=== PATIENT | male | born 1935 | race African-American/Black ===

== ENCOUNTER 2016-10-29 17:23 | Inpatient (IN) | payer MEDICARE, OTHER ==
[~2016-10-29] VITALS: Ht 165.1 cm; Wt 76.0 kg
[~2016-10-29 17:23] MED LIST: ACET650S28 PO; AMLO-512 PO; ASPI-1061 PO; AUD NEB; BISA10S PR; FURO20TA4 PO; IPRNEB IH; MOM30 PO; MORP1VIA IVPB; MORP2SYR SQ; MS100DRIP SQ; ONDA22I IM; PANT40TA25 PO; PIPE3.379 IV; QUET25TA PO; ZOLP5 PO; [UNRECOGNIZED DRUG - CODE] IV
[2016-10-29] MEDS ORDERED: SODIUM CHLORIDE 0.9% 1,000 ML IV ONE (18:00)
[2016-10-29] MEDS ORDERED: PANTOPRAZOLE SODIUM 80 MG in SODIUM CHLORIDE 0.9% 500 ML IV SCH (18:00)
[2016-10-29] MEDS ORDERED: PANTOPRAZOLE SODIUM 80 MG in SODIUM CHLORIDE 0.9% 50 ML IV ONE (18:00)
[2016-10-29] MEDS ORDERED: ACET-2247 PO (18:03)
[2016-10-29 19:10] LABS: BASOPHILS % (AUTO) 0.5 % (0.0-2.0); EOSINOPHILS % (AUTO) 2.5 % (1.0-6.0); HEMATOCRIT 34.9 % (41-53); LYMPHOCYTES # (AUTO) 2.5 K/uL (1.0-4.8); LYMPHOCYTES % (AUTO) 33.6 % (22.0-44.0); MEAN CORPUSCULAR HEMOGLOBIN 28.2 pg (26.0-34.0); MEAN CORPUSCULAR HGB CONC 31.4 G/dL (31.0-37.0); MEAN CORPUSCULAR VOLUME 90 fL (80-100); MONOCYTES # (AUTO) 0.8 K/uL (0.1-1.0); MONOCYTES % (AUTO) 11.5 % (2.0-9.0); NEUTROPHILS # (AUTO) 3.8 K/uL (1.8-7.7); NEUTROPHILS % (AUTO) 51.9 % (40.0-70.0); PLATELET COUNT (AUTO) 239 K/uL (150-450); RED BLOOD CELL COUNT(AUTO) 3.89 MIL/uL (4.50-5.90); RED CELL DISTRIBUTION WIDTH 18.1 % (11.5-14.5); WHITE BLOOD COUNT (AUTO) 7.3 K/uL (4.5-11.0)
[2016-10-29 19:16] LABS: ANION GAP 5 mmol/L (8-16); CALCIUM, TOTAL 9.1 mg/dL (8.8-10.5); CARBON DIOXIDE 28 mmol/L (22-29); CHLORIDE 108 mmol/L (98-107); CREATININE 0.76 mg/dL (0.60-1.30); GLOMERULAR FILTR. RATE CALC > 60 mL/min (>60); POTASSIUM 3.5 mmol/L (3.5-5.1); SODIUM SERUM 141 mmol/L (136-145); UREA NITROGEN, BLOOD 23 mg/dL (7-18)
[2016-10-29 19:21] LABS: ALANINE AMINOTRANSFERASE 15 U/L (12-78); ALBUMIN 2.6 g/dL (3.4-5.0); ASPARTATE AMINOTRANSFERASE 15 U/L (15-37); BILIRUBIN,TOTAL 0.1 mg/dL (0.1-1.0); TOTAL PROTEIN, SERUM 7.5 g/dL (6.4-8.2)
[2016-10-29 19:32] LABS: B-TYPE NATRIURETIC PEPTIDE 15 pg/mL (0-100)
[2016-10-29 20:21] LABS: RBC MORPHOLOGY COMMENT ABNORMAL RBC MORPH
[2016-10-29 20:25] LABS: APPEARANCE,URINE CLOUDY (CLEAR); GLUCOSE, URINE (UA) NEGATIVE (NEGATIVE); KETONES,URINE NEGATIVE (NEGATIVE); LEUKOCYTE ESTERASE ,URINE LARGE (NEGATIVE); OCCULT BLOOD,URINE MODERATE (NEGATIVE); PH,URINE 5.5 (5.0-8.0); PROTEIN,URINE TRACE (NEGATIVE)
[2016-10-29 20:36] LABS: ADD UA MICROSCOPIC YES
[2016-10-29 20:37] LABS: CALCIUM OXALATE CRYSTALS,UR Rare /LPF (None Seen); COARSE GRANULAR CASTS,URINE 0-2 /LPF (None Seen); HYALINE CASTS, URINE 0-2 /LPF (None Seen); RBC,URINE 26-50 /HPF (0-2); SQUAMOUS EPITHELIAL CELL,UR Rare /LPF (None Seen); WBC,URINE 51-100 /HPF (0-5)
[2016-10-29] MEDS: CefTRIAXone 1 GM/DEXTROSE 50 ML IV ONE ×2 (20:45→23:29)
[2016-10-29 21:48] VITALS: BP 99/54
[2016-10-29] MEDS ORDERED: ONDANSETRON HCL 4 MG/2 ML VIAL IVP PRN (23:00)
[2016-10-29] MEDS ORDERED: MAGNESIUM HYDROXIDE SUSPENSION 30 ML UDCUP PO PRN (23:00)
[2016-10-29] MEDS ORDERED: BISACODYL 10 MG RECTAL RECTAL SUPPOSITORY PR PRN (23:00)
[2016-10-30 00:12] VITALS: BP 104/61
[2016-10-30] MEDS: QUEtiapine FUMARATE 25 MG TABLET PO SCH ×3 (01:48→20:30)
[2016-10-30 04:07] VITALS: BP 98/56
[2016-10-30] MEDS ORDERED: PROPOFOL 1% 20 ML VIAL IVP ONE (04:12)
[2016-10-30] MEDS: CefTRIAXone 1 GM/DEXTROSE 50 ML IV ONE (04:38)
[2016-10-30 07:15] VITALS: BP 163/93
[2016-10-30 07:27] LABS: BASOPHILS % (AUTO) 0.9 % (0.0-2.0); EOSINOPHILS % (AUTO) 2.7 % (1.0-6.0); HEMATOCRIT 34.6 % (41-53); HEMOGLOBIN 10.9 g/dL (13.5-17.5); LYMPHOCYTES # (AUTO) 4.1 K/uL (1.0-4.8); LYMPHOCYTES % (AUTO) 50.6 % (22.0-44.0); MEAN CORPUSCULAR HGB CONC 31.6 G/dL (31.0-37.0); MEAN CORPUSCULAR VOLUME 89 fL (80-100); MONOCYTES # (AUTO) 0.9 K/uL (0.1-1.0); MONOCYTES % (AUTO) 11.2 % (2.0-9.0); NEUTROPHILS # (AUTO) 2.8 K/uL (1.8-7.7); NEUTROPHILS % (AUTO) 34.6 % (40.0-70.0); PLATELET COUNT (AUTO) 276 K/uL (150-450); RED CELL DISTRIBUTION WIDTH 17.9 % (11.5-14.5)
[2016-10-30 07:50] LABS: HEMOGLOBIN A1C 5.9 % (4.5-6.2)
[2016-10-30 08:04] LABS: ANION GAP 9 mmol/L (8-16); CALCIUM, TOTAL 9.4 mg/dL (8.8-10.5); CARBON DIOXIDE 26 mmol/L (22-29); CHLORIDE 110 mmol/L (98-107); CHOL/HDL RATIO 2.8 (4.2-7.3); CREATINE KINASE MB 2.2 ng/mL (0-5); CREATINE KINASE, TOTAL 95 U/L (39-308); CREATININE 0.74 mg/dL (0.60-1.30); GLOMERULAR FILTR. RATE CALC > 60 mL/min (>60); POTASSIUM 4.5 mmol/L (3.5-5.1); SODIUM SERUM 145 mmol/L (136-145); THYROID STIMULATING HORMONE 2.38 uIU/mL (0.36-3.74); UREA NITROGEN, BLOOD 19 mg/dL (7-18)
[2016-10-30] MEDS: FUROSEMIDE 20 MG TABLET PO SCH (09:00)
[2016-10-30 09:32] LABS: VITAMIN B12 LEVEL 625 pg/mL (211-911)
[2016-10-30 10:28] LABS: RBC MORPHOLOGY COMMENT ABNORMAL RBC MORPH
[2016-10-30] MEDS: PANTOPRAZOLE SODIUM 40 MG/VIAL IVP SCH (11:07)
[2016-10-30 11:18] VITALS: BP 157/52
[2016-10-30] MEDS ORDERED: SODIUM CHLORIDE 0.9% 1,000 ML IV ONE ×2 (13:00→13:27)
[2016-10-30] MEDS ORDERED: CLON.1 PO (17:07)
[2016-10-30] MEDS ORDERED: ASCO500T24 PO (17:07)
[2016-10-30] MEDS ORDERED: FAMO20 PO (17:07)
[2016-10-30] MEDS ORDERED: LACT1TAB4 PO (17:07)
[2016-10-30] MEDS ORDERED: FURO20 PO (17:07)
[2016-10-30] MEDS ORDERED: MULT1CAP32 PO (17:07)
[2016-10-30] MEDS ORDERED: LORA1TAB3 IM (17:07)
[2016-10-30] MEDS ORDERED: ONDA4 PO (17:07)
[2016-10-30] MEDS ORDERED: SIME80 PO (17:07)
[2016-10-30 17:23] VITALS: BP 122/72
[2016-10-30 20:05] VITALS: BP 136/67
[2016-10-30] MEDS: CefTRIAXone 1 GM/DEXTROSE 50 ML IV SCH (20:30)
[2016-10-30] MEDS: LORazepam 2 MG/ML VIAL IVP PRN (20:30)
[2016-10-31] VITALS (7 sets, daily range): BP systolic 104–153; BP diastolic 56–80
[2016-10-31 06:27] LABS: BASOPHILS % (AUTO) 0.7 % (0.0-2.0); EOSINOPHILS % (AUTO) 5.2 % (1.0-6.0); HEMATOCRIT 32.3 % (41-53); HEMOGLOBIN 10.2 g/dL (13.5-17.5); LYMPHOCYTES # (AUTO) 2.6 K/uL (1.0-4.8); LYMPHOCYTES % (AUTO) 47.1 % (22.0-44.0); MEAN CORPUSCULAR HEMOGLOBIN 28.5 pg (26.0-34.0); MEAN CORPUSCULAR HGB CONC 31.6 G/dL (31.0-37.0); MEAN CORPUSCULAR VOLUME 90 fL (80-100); MONOCYTES # (AUTO) 0.8 K/uL (0.1-1.0); MONOCYTES % (AUTO) 14.2 % (2.0-9.0); NEUTROPHILS # (AUTO) 1.8 K/uL (1.8-7.7); NEUTROPHILS % (AUTO) 32.8 % (40.0-70.0); PLATELET COUNT (AUTO) 241 K/uL (150-450); RED BLOOD CELL COUNT(AUTO) 3.59 MIL/uL (4.50-5.90); RED CELL DISTRIBUTION WIDTH 17.9 % (11.5-14.5); WHITE BLOOD COUNT (AUTO) 5.5 K/uL (4.5-11.0)
[2016-10-31 06:36] LABS: ANION GAP 4 mmol/L (8-16); CALCIUM, TOTAL 8.7 mg/dL (8.8-10.5); CARBON DIOXIDE 28 mmol/L (22-29); CHLORIDE 110 mmol/L (98-107); CREATININE 0.68 mg/dL (0.60-1.30); GLOMERULAR FILTR. RATE CALC > 60 mL/min (>60); POTASSIUM 4.2 mmol/L (3.5-5.1); SODIUM SERUM 142 mmol/L (136-145); UREA NITROGEN, BLOOD 16 mg/dL (7-18)
[2016-10-31 06:42] LABS: RBC MORPHOLOGY COMMENT ABNORMAL RBC MORPH
[2016-10-31] MEDS: PANTOPRAZOLE SODIUM 40 MG/VIAL IVP SCH (09:39)
[2016-10-31] MEDS: FUROSEMIDE 20 MG TABLET PO SCH (09:39)
[2016-10-31] MEDS: MULTIVITAMINS, THERAPEUTIC TABLET PO SCH (09:39)
[2016-10-31] MEDS: QUEtiapine FUMARATE 25 MG TABLET PO SCH ×3 (09:40→20:31)
[2016-10-31] MEDS: MUPIROCIN CALCIUM 2% 22 GM OINTMENT NASAL SCH (20:31)
[2016-10-31] MEDS: LORazepam 2 MG/ML VIAL IVP PRN (20:31)
[2016-10-31] MEDS: CefTRIAXone 1 GM/DEXTROSE 50 ML IV SCH (20:33)
[2016-11-01 04:23] VITALS: BP 124/69
[2016-11-01 07:03] LABS: BASOPHILS # (AUTO) 0.03 K/uL (0.00-0.20); BASOPHILS % (AUTO) 0.5 % (0.0-2.0); EOSINOPHILS # (AUTO) 0.23 K/uL (0.00-0.70); EOSINOPHILS % (AUTO) 3.32 % (1.0-6.0); HEMATOCRIT 33.3 % (41-53); LYMPHOCYTES # (AUTO) 2.7 K/uL (1.0-4.8); LYMPHOCYTES % (AUTO) 39.2 % (22.0-44.0); MEAN CORPUSCULAR HEMOGLOBIN 29.1 pg (26.0-34.0); MEAN CORPUSCULAR VOLUME 88 fL (80-100); MONOCYTES # (AUTO) 0.8 K/uL (0.1-1.0); MONOCYTES % (AUTO) 11.4 % (2.0-9.0); NEUTROPHILS # (AUTO) 3.1 K/uL (1.8-7.7); NEUTROPHILS % (AUTO) 45.6 % (40.0-70.0); PLATELET COUNT (AUTO) 290 K/uL (150-450); RED BLOOD CELL COUNT(AUTO) 3.78 MIL/uL (4.50-5.90); RED CELL DISTRIBUTION WIDTH 17.3 % (11.5-14.5); WHITE BLOOD COUNT (AUTO) 6.8 K/uL (4.5-11.0)
[2016-11-01 07:33] LABS: ANION GAP 8 mmol/L (8-16); CALCIUM, TOTAL 8.8 mg/dL (8.8-10.5); CARBON DIOXIDE 28 mmol/L (22-29); CHLORIDE 107 mmol/L (98-107); CREATININE 0.61 mg/dL (0.60-1.30); GLOMERULAR FILTR. RATE CALC > 60 mL/min (>60); POTASSIUM 3.6 mmol/L (3.5-5.1); SODIUM SERUM 143 mmol/L (136-145); UREA NITROGEN, BLOOD 13 mg/dL (7-18)
[2016-11-01 08:44] VITALS: BP 145/80
[2016-11-01] MEDS: FUROSEMIDE 20 MG TABLET PO SCH (08:57)
[2016-11-01] MEDS: QUEtiapine FUMARATE 25 MG TABLET PO SCH ×3 (08:59→20:16)
[2016-11-01] MEDS: MULTIVITAMINS, THERAPEUTIC TABLET PO SCH (08:59)
[2016-11-01] MEDS: PANTOPRAZOLE SODIUM 40 MG/VIAL IVP SCH (08:59)
[2016-11-01] MEDS: MUPIROCIN CALCIUM 2% 22 GM OINTMENT NASAL SCH ×2 (09:13→20:17)
[2016-11-01 10:23] LABS: RBC MORPHOLOGY COMMENT ABNORMAL RBC MORPH
[2016-11-01] MEDS ORDERED: CloNIDine HCL 0.1 MG TABLET PO PRN (11:00)
[2016-11-01] MEDS ORDERED: SIMETHICONE 80 MG CHEWABLE TABLET PO PRN (11:00)
[2016-11-01] MEDS ORDERED: CEFT1PB IV (11:20)
[2016-11-01] MEDS ORDERED: FURO20 PO (11:22)
[2016-11-01] MEDS ORDERED: MUPI15CR12 NASAL (11:28)
[2016-11-01] MEDS ORDERED: BISA10S PR (11:29)
[2016-11-01] MEDS ORDERED: LORA0.5T2 PO (11:30)
[2016-11-01 12:07] VITALS: BP 138/65
[2016-11-01 16:00] VITALS: BP 147/75
[2016-11-01 20:14] VITALS: BP 118/74
[2016-11-01] MEDS: LORazepam 2 MG/ML VIAL IVP PRN (20:16)
[2016-11-01] MEDS: CefTRIAXone 1 GM/DEXTROSE 50 ML IV SCH (20:17)
[2016-11-02] VITALS (7 sets, daily range): BP systolic 122–159; BP diastolic 60–77
[2016-11-02] MEDS: PANTOPRAZOLE SODIUM 40 MG/VIAL IVP SCH (08:05)
[2016-11-02] MEDS: LACTOBAC ACID/BULG/BIFID/THERM TABLET PO SCH (08:06)
[2016-11-02] MEDS: FUROSEMIDE 20 MG TABLET PO SCH (08:06)
[2016-11-02] MEDS: MUPIROCIN CALCIUM 2% 22 GM OINTMENT NASAL SCH ×2 (08:06→20:27)
[2016-11-02] MEDS: ASPIRIN 81 MG EC TABLET PO SCH (08:06)
[2016-11-02] MEDS: AmLODIPine BESYLATE 10 MG TABLET PO SCH (08:06)
[2016-11-02] MEDS: ASCORBIC ACID 500 MG TABLET PO SCH (08:07)
[2016-11-02] MEDS: QUEtiapine FUMARATE 25 MG TABLET PO SCH ×3 (08:07→20:25)
[2016-11-02] MEDS: MULTIVITAMINS, THERAPEUTIC TABLET PO SCH (08:07)
[2016-11-02] MEDS ORDERED: 0.9% SODIUM CHLORIDE 10 ML SYRINGE IVP PRN (17:30)
[2016-11-02] MEDS: CefTRIAXone 1 GM/DEXTROSE 50 ML IV SCH (20:25)
[2016-11-02] MEDS: LORazepam 2 MG/ML VIAL IVP PRN (20:27)
[2016-11-03] VITALS (7 sets, daily range): BP systolic 102–151; BP diastolic 55–79
[2016-11-03] MEDS: AmLODIPine BESYLATE 10 MG TABLET PO SCH (08:59)
[2016-11-03] MEDS: PANTOPRAZOLE SODIUM 40 MG/VIAL IVP SCH (08:59)
[2016-11-03] MEDS: FUROSEMIDE 20 MG TABLET PO SCH (09:00)
[2016-11-03] MEDS: ASCORBIC ACID 500 MG TABLET PO SCH (09:00)
[2016-11-03] MEDS: LACTOBAC ACID/BULG/BIFID/THERM TABLET PO SCH (09:00)
[2016-11-03] MEDS: ASPIRIN 81 MG EC TABLET PO SCH (09:00)
[2016-11-03] MEDS: QUEtiapine FUMARATE 25 MG TABLET PO SCH ×3 (09:00→21:28)
[2016-11-03] MEDS: MULTIVITAMINS, THERAPEUTIC TABLET PO SCH (09:00)
[2016-11-03] MEDS: MUPIROCIN CALCIUM 2% 22 GM OINTMENT NASAL SCH ×2 (09:02→21:29)
[2016-11-03] MEDS: LORazepam 2 MG/ML VIAL IVP PRN ×2 (12:13→21:30)
[2016-11-03] MEDS: CefTRIAXone 1 GM/DEXTROSE 50 ML IV SCH (21:29)
[2016-11-03] MEDS: ACETAMINOPHEN 325 MG TABLET PO PRN (23:04)
[2016-11-04 04:50] VITALS: BP 142/93
[2016-11-04 07:12] VITALS: BP 122/53
[2016-11-04] MEDS: MUPIROCIN CALCIUM 2% 22 GM OINTMENT NASAL SCH ×2 (08:53→20:04)
[2016-11-04] MEDS: PANTOPRAZOLE SODIUM 40 MG/VIAL IVP SCH (08:53)
[2016-11-04] MEDS: LACTOBAC ACID/BULG/BIFID/THERM TABLET PO SCH (08:54)
[2016-11-04] MEDS: ASPIRIN 81 MG EC TABLET PO SCH (08:54)
[2016-11-04] MEDS: FUROSEMIDE 20 MG TABLET PO SCH (08:54)
[2016-11-04] MEDS: MULTIVITAMINS, THERAPEUTIC TABLET PO SCH (08:54)
[2016-11-04] MEDS: ASCORBIC ACID 500 MG TABLET PO SCH (08:55)
[2016-11-04] MEDS: QUEtiapine FUMARATE 25 MG TABLET PO SCH ×3 (08:57→20:02)
[2016-11-04] MEDS: AmLODIPine BESYLATE 10 MG TABLET PO SCH (08:57)
[2016-11-04] MEDS ORDERED: ENALAPRIL MALEATE 5 MG TABLET PO PRN (09:30)
[2016-11-04 09:37] LABS: BASOPHILS # (AUTO) 0.01 K/uL (0.00-0.20); BASOPHILS % (AUTO) 0.1 % (0.0-2.0); EOSINOPHILS # (AUTO) 0.33 K/uL (0.00-0.70); HEMOGLOBIN 11.8 g/dL (13.5-17.5); LYMPHOCYTES # (AUTO) 1.8 K/uL (1.0-4.8); LYMPHOCYTES % (AUTO) 25.9 % (22.0-44.0); MEAN CORPUSCULAR HEMOGLOBIN 28.9 pg (26.0-34.0); MEAN CORPUSCULAR HGB CONC 31.8 G/dL (31.0-37.0); MEAN CORPUSCULAR VOLUME 91 fL (80-100); MONOCYTES # (AUTO) 0.7 K/uL (0.1-1.0); MONOCYTES % (AUTO) 9.7 % (2.0-9.0); NEUTROPHILS % (AUTO) 59.4 % (40.0-70.0); PLATELET COUNT (AUTO) 263 K/uL (150-450); RED BLOOD CELL COUNT(AUTO) 4.07 MIL/uL (4.50-5.90); RED CELL DISTRIBUTION WIDTH 17.5 % (11.5-14.5); WHITE BLOOD COUNT (AUTO) 6.7 K/uL (4.5-11.0)
[2016-11-04 09:47] LABS: ANION GAP 5 mmol/L (8-16); CALCIUM, TOTAL 8.9 mg/dL (8.8-10.5); CARBON DIOXIDE 32 mmol/L (22-29); CHLORIDE 103 mmol/L (98-107); CREATININE 0.73 mg/dL (0.60-1.30); GLOMERULAR FILTR. RATE CALC > 60 mL/min (>60); POTASSIUM 3.8 mmol/L (3.5-5.1); SODIUM SERUM 140 mmol/L (136-145); UREA NITROGEN, BLOOD 12 mg/dL (7-18)
[2016-11-04 09:58] LABS: RBC MORPHOLOGY COMMENT ABNORMAL RBC MORPH
[2016-11-04 10:01] LABS: ALANINE AMINOTRANSFERASE 12 U/L (12-78); ALBUMIN 2.7 g/dL (3.4-5.0); ASPARTATE AMINOTRANSFERASE 17 U/L (15-37); BILIRUBIN,TOTAL 0.3 mg/dL (0.1-1.0); THYROID STIMULATING HORMONE 2.44 uIU/mL (0.36-3.74); TOTAL PROTEIN, SERUM 7.4 g/dL (6.4-8.2)
[2016-11-04 11:16] VITALS: BP 136/67
[2016-11-04 14:49] VITALS: BP 128/61
[2016-11-04 19:23] VITALS: BP 130/73
[2016-11-04] MEDS: ACETAMINOPHEN 325 MG TABLET PO PRN (20:02)
[2016-11-04] MEDS: CefTRIAXone 1 GM/DEXTROSE 50 ML IV SCH (20:03)
[2016-11-05] VITALS: BP 128/74
[2016-11-05] MEDS: ACETAMINOPHEN 325 MG TABLET PO PRN ×2 (03:57→10:07)
[2016-11-05 04:00] VITALS: BP 136/68
[2016-11-05 09:56] VITALS: BP 138/79
[2016-11-05] MEDS: MUPIROCIN CALCIUM 2% 22 GM OINTMENT NASAL SCH (10:06)
[2016-11-05] MEDS: ASPIRIN 81 MG EC TABLET PO SCH (10:07)
[2016-11-05] MEDS: QUEtiapine FUMARATE 25 MG TABLET PO SCH ×3 (10:07→20:55)
[2016-11-05] MEDS: PANTOPRAZOLE SODIUM 40 MG/VIAL IVP SCH (10:07)
[2016-11-05] MEDS: MULTIVITAMINS, THERAPEUTIC TABLET PO SCH (10:07)
[2016-11-05] MEDS: AmLODIPine BESYLATE 10 MG TABLET PO SCH (10:07)
[2016-11-05] MEDS: FUROSEMIDE 20 MG TABLET PO SCH (10:07)
[2016-11-05] MEDS: LACTOBAC ACID/BULG/BIFID/THERM TABLET PO SCH (10:07)
[2016-11-05] MEDS: ASCORBIC ACID 500 MG TABLET PO SCH (10:08)
[2016-11-05 11:30] VITALS: BP 140/68
[2016-11-05] MEDS: LORazepam 2 MG/ML VIAL IVP PRN (15:58)
[2016-11-05 20:00] VITALS: BP 120/67
[2016-11-05] MEDS: CefTRIAXone 1 GM/DEXTROSE 50 ML IV SCH (20:56)
[2016-11-05] MEDS: CAFFEINE 200 MG TABLET PO SCH (20:56)
[2016-11-05] MEDS: MAGNESIUM OXIDE 400 MG TABLET PO PRN (22:49)
[2016-11-05 23:24] VITALS: BP 126/70
[2016-11-06 04:06] VITALS: BP 134/68
[2016-11-06] MEDS: MAGNESIUM OXIDE 400 MG TABLET PO PRN ×2 (06:05→12:31)
[2016-11-06 06:43] LABS: BASOPHILS # (AUTO) 0.07 K/uL (0.00-0.20); EOSINOPHILS # (AUTO) 0.19 K/uL (0.00-0.70); EOSINOPHILS % (AUTO) 2.94 % (1.0-6.0); HEMATOCRIT 33.7 % (41-53); HEMOGLOBIN 10.8 g/dL (13.5-17.5); LYMPHOCYTES # (AUTO) 1.9 K/uL (1.0-4.8); LYMPHOCYTES % (AUTO) 29.5 % (22.0-44.0); MEAN CORPUSCULAR HEMOGLOBIN 29.3 pg (26.0-34.0); MEAN CORPUSCULAR HGB CONC 32.2 G/dL (31.0-37.0); MEAN CORPUSCULAR VOLUME 91 fL (80-100); MONOCYTES # (AUTO) 0.8 K/uL (0.1-1.0); NEUTROPHILS # (AUTO) 3.6 K/uL (1.8-7.7); NEUTROPHILS % (AUTO) 54.5 % (40.0-70.0); PLATELET COUNT (AUTO) 247 K/uL (150-450); RED CELL DISTRIBUTION WIDTH 17.3 % (11.5-14.5); WHITE BLOOD COUNT (AUTO) 6.6 K/uL (4.5-11.0)
[2016-11-06 07:07] LABS: ALANINE AMINOTRANSFERASE 14 U/L (12-78); ALBUMIN 2.5 g/dL (3.4-5.0); ANION GAP 6 mmol/L (8-16); ASPARTATE AMINOTRANSFERASE 15 U/L (15-37); BILIRUBIN,TOTAL 0.2 mg/dL (0.1-1.0); CALCIUM, TOTAL 8.6 mg/dL (8.8-10.5); CARBON DIOXIDE 32 mmol/L (22-29); CHLORIDE 102 mmol/L (98-107); CREATININE 0.78 mg/dL (0.60-1.30); GLOMERULAR FILTR. RATE CALC > 60 mL/min (>60); POTASSIUM 4.1 mmol/L (3.5-5.1); SODIUM SERUM 140 mmol/L (136-145); TOTAL PROTEIN, SERUM 6.8 g/dL (6.4-8.2); UREA NITROGEN, BLOOD 12 mg/dL (7-18)
[2016-11-06 07:29] VITALS: BP 107/49
[2016-11-06] MEDS: ASPIRIN 81 MG EC TABLET PO SCH (08:11)
[2016-11-06] MEDS: PANTOPRAZOLE SODIUM 40 MG/VIAL IVP SCH (08:11)
[2016-11-06] MEDS: AmLODIPine BESYLATE 10 MG TABLET PO SCH (08:11)
[2016-11-06] MEDS: QUEtiapine FUMARATE 25 MG TABLET PO SCH ×3 (08:11→21:06)
[2016-11-06] MEDS: ASCORBIC ACID 500 MG TABLET PO SCH (08:11)
[2016-11-06] MEDS: LACTOBAC ACID/BULG/BIFID/THERM TABLET PO SCH (08:11)
[2016-11-06] MEDS: FUROSEMIDE 20 MG TABLET PO SCH (08:11)
[2016-11-06] MEDS: CAFFEINE 200 MG TABLET PO SCH ×2 (08:11→21:05)
[2016-11-06] MEDS: MULTIVITAMINS, THERAPEUTIC TABLET PO SCH (08:11)
[2016-11-06 11:17] VITALS: BP 119/54
[2016-11-06 14:30] LABS: RBC MORPHOLOGY COMMENT ABNORMAL RBC MORPH
[2016-11-06 15:10] VITALS: BP 119/61
[2016-11-06] MEDS: ACETAMINOPHEN 325 MG TABLET PO PRN (16:06)
[2016-11-06 19:40] VITALS: BP 123/59
[2016-11-06] MEDS: CefTRIAXone 1 GM/DEXTROSE 50 ML IV SCH (21:05)
[2016-11-06 23:37] VITALS: BP 106/59
[2016-11-07] MEDS: LORazepam 2 MG/ML VIAL IVP PRN (01:55)
[2016-11-07 05:17] VITALS: BP 124/63
[2016-11-07 07:40] VITALS: BP 125/83
[2016-11-07] MEDS: LACTOBAC ACID/BULG/BIFID/THERM TABLET PO SCH (08:49)
[2016-11-07] MEDS: MULTIVITAMINS, THERAPEUTIC TABLET PO SCH (08:50)
[2016-11-07] MEDS: ASPIRIN 81 MG EC TABLET PO SCH (08:50)
[2016-11-07] MEDS: ASCORBIC ACID 500 MG TABLET PO SCH (08:50)
[2016-11-07] MEDS: QUEtiapine FUMARATE 25 MG TABLET PO SCH ×3 (08:51→21:12)
[2016-11-07] MEDS: AmLODIPine BESYLATE 5 MG TABLET PO SCH (08:52)
[2016-11-07] MEDS: CAFFEINE 200 MG TABLET PO SCH ×2 (08:52→21:12)
[2016-11-07] MEDS: PANTOPRAZOLE SODIUM 40 MG/VIAL IVP SCH (09:44)
[2016-11-07 12:02] VITALS: BP 104/57
[2016-11-07] MEDS: FUROSEMIDE 20 MG TABLET PO SCH (12:10)
[2016-11-07 16:34] VITALS: BP 146/78
[2016-11-07 20:33] VITALS: BP 142/75
[2016-11-07] MEDS: CefTRIAXone 1 GM/DEXTROSE 50 ML IV SCH (21:12)
[2016-11-07 23:39] VITALS: BP 145/75
[2016-11-08 04:43] VITALS: BP 140/77
[2016-11-08 07:16] LABS: BASOPHILS % (AUTO) 0.5 % (0.0-2.0); EOSINOPHILS % (AUTO) 5.6 % (1.0-6.0); HEMATOCRIT 31.5 % (41-53); LYMPHOCYTES # (AUTO) 2.2 K/uL (1.0-4.8); LYMPHOCYTES % (AUTO) 45.6 % (22.0-44.0); MEAN CORPUSCULAR HEMOGLOBIN 28.3 pg (26.0-34.0); MEAN CORPUSCULAR HGB CONC 31.7 G/dL (31.0-37.0); MEAN CORPUSCULAR VOLUME 89 fL (80-100); MONOCYTES # (AUTO) 0.7 K/uL (0.1-1.0); MONOCYTES % (AUTO) 13.3 % (2.0-9.0); NEUTROPHILS # (AUTO) 1.7 K/uL (1.8-7.7); RED BLOOD CELL COUNT(AUTO) 3.54 MIL/uL (4.50-5.90)
[2016-11-08 07:18] LABS: ALANINE AMINOTRANSFERASE 13 U/L (12-78); ALBUMIN 2.4 g/dL (3.4-5.0); ANION GAP 5 mmol/L (8-16); ASPARTATE AMINOTRANSFERASE 15 U/L (15-37); BILIRUBIN,TOTAL 0.2 mg/dL (0.1-1.0); CALCIUM, TOTAL 8.6 mg/dL (8.8-10.5); CARBON DIOXIDE 31 mmol/L (22-29); CHLORIDE 105 mmol/L (98-107); CREATININE 0.68 mg/dL (0.60-1.30); GLOMERULAR FILTR. RATE CALC > 60 mL/min (>60); POTASSIUM 3.4 mmol/L (3.5-5.1); SODIUM SERUM 141 mmol/L (136-145); TOTAL PROTEIN, SERUM 6.8 g/dL (6.4-8.2); UREA NITROGEN, BLOOD 10 mg/dL (7-18); WHITE BLOOD COUNT (AUTO) 7.4 K/uL (4.5-11.0)
[2016-11-08 07:35] VITALS: BP 135/67
[2016-11-08] MEDS: ASCORBIC ACID 500 MG TABLET PO SCH (07:51)
[2016-11-08] MEDS: QUEtiapine FUMARATE 25 MG TABLET PO SCH ×3 (07:51→20:31)
[2016-11-08] MEDS: MULTIVITAMINS, THERAPEUTIC TABLET PO SCH (07:51)
[2016-11-08] MEDS: ASPIRIN 81 MG EC TABLET PO SCH (07:51)
[2016-11-08] MEDS: PANTOPRAZOLE SODIUM 40 MG/VIAL IVP SCH (07:52)
[2016-11-08] MEDS: AmLODIPine BESYLATE 5 MG TABLET PO SCH (07:52)
[2016-11-08] MEDS: LACTOBAC ACID/BULG/BIFID/THERM TABLET PO SCH (07:52)
[2016-11-08] MEDS: FUROSEMIDE 20 MG TABLET PO SCH (07:52)
[2016-11-08] MEDS: CAFFEINE 200 MG TABLET PO SCH ×2 (07:56→20:34)
[2016-11-08 08:32] LABS: PLATELET COUNT (AUTO) 209 K/uL (150-450)
[2016-11-08] MEDS ORDERED: POTASSIUM CHLORIDE 10 MEQ ER TABLET PO ONE (09:00)
[2016-11-08 11:05] VITALS: BP 136/66
[2016-11-08 15:31] VITALS: BP 128/76
[2016-11-08 19:53] VITALS: BP 146/78
[2016-11-08] MEDS: CefTRIAXone 1 GM/DEXTROSE 50 ML IV SCH (20:34)
[2016-11-08 23:12] VITALS: BP 142/89
[2016-11-09] MEDS: ZOLPIDEM TARTRATE 5 MG TABLET PO PRN (02:03)
[2016-11-09] MEDS: LORazepam 2 MG/ML VIAL IVP PRN (02:37)
[2016-11-09 06:22] VITALS: BP 156/74
[2016-11-09 07:09] VITALS: BP 128/67
[2016-11-09] MEDS: MULTIVITAMINS, THERAPEUTIC TABLET PO SCH (08:30)
[2016-11-09] MEDS: AmLODIPine BESYLATE 5 MG TABLET PO SCH (08:30)
[2016-11-09] MEDS: LACTOBAC ACID/BULG/BIFID/THERM TABLET PO SCH (08:31)
[2016-11-09] MEDS: ASPIRIN 81 MG EC TABLET PO SCH (08:31)
[2016-11-09] MEDS: QUEtiapine FUMARATE 25 MG TABLET PO SCH ×3 (08:31→20:47)
[2016-11-09] MEDS: CAFFEINE 200 MG TABLET PO SCH ×2 (08:32→20:47)
[2016-11-09] MEDS: ASCORBIC ACID 500 MG TABLET PO SCH (08:32)
[2016-11-09] MEDS: PANTOPRAZOLE SODIUM 40 MG/VIAL IVP SCH (08:34)
[2016-11-09 10:57] VITALS: BP 121/61
[2016-11-09] MEDS: FUROSEMIDE 20 MG TABLET PO SCH (12:06)
[2016-11-09 15:05] VITALS: BP 141/70
[2016-11-09 19:40] VITALS: BP 146/72
[2016-11-09] MEDS: CefTRIAXone 1 GM/DEXTROSE 50 ML IV SCH (20:48)
[2016-11-09] MEDS: ACETAMINOPHEN 325 MG TABLET PO PRN (20:51)
[2016-11-09] MEDS ORDERED: SODIUM CHLORIDE 0.9% 250 ML IV ONE (20:57)
[2016-11-10] VITALS (7 sets, daily range): BP systolic 118–166; BP diastolic 53–77
[2016-11-10] MEDS: ZOLPIDEM TARTRATE 5 MG TABLET PO PRN ×2 (00:23→20:42)
[2016-11-10] MEDS: LORazepam 2 MG/ML VIAL IVP PRN ×2 (00:43→21:34)
[2016-11-10] MEDS: ASPIRIN 81 MG EC TABLET PO SCH (09:16)
[2016-11-10] MEDS: QUEtiapine FUMARATE 25 MG TABLET PO SCH ×3 (09:16→20:41)
[2016-11-10] MEDS: AmLODIPine BESYLATE 5 MG TABLET PO SCH (09:16)
[2016-11-10] MEDS: ASCORBIC ACID 500 MG TABLET PO SCH (09:16)
[2016-11-10] MEDS: MULTIVITAMINS, THERAPEUTIC TABLET PO SCH (09:16)
[2016-11-10] MEDS: FUROSEMIDE 20 MG TABLET PO SCH (09:16)
[2016-11-10] MEDS: LACTOBAC ACID/BULG/BIFID/THERM TABLET PO SCH (09:16)
[2016-11-10] MEDS: CAFFEINE 200 MG TABLET PO SCH ×2 (09:39→20:42)
[2016-11-10] MEDS: PANTOPRAZOLE SODIUM 40 MG/VIAL IVP SCH (09:42)
[2016-11-10] MEDS: MAGNESIUM OXIDE 400 MG TABLET PO PRN (12:46)
[2016-11-11 06:01] VITALS: BP 135/56
[2016-11-11] MEDS: PANTOPRAZOLE SODIUM 40 MG/VIAL IVP SCH (09:00)
[2016-11-11] MEDS: QUEtiapine FUMARATE 25 MG TABLET PO SCH ×3 (09:10→20:36)
[2016-11-11] MEDS: LACTOBAC ACID/BULG/BIFID/THERM TABLET PO SCH (09:10)
[2016-11-11] MEDS: FUROSEMIDE 20 MG TABLET PO SCH (09:10)
[2016-11-11] MEDS: MULTIVITAMINS, THERAPEUTIC TABLET PO SCH (09:10)
[2016-11-11] MEDS: ASCORBIC ACID 500 MG TABLET PO SCH (09:10)
[2016-11-11] MEDS: ASPIRIN 81 MG EC TABLET PO SCH (09:10)
[2016-11-11] MEDS: AmLODIPine BESYLATE 5 MG TABLET PO SCH (09:10)
[2016-11-11] MEDS: CAFFEINE 200 MG TABLET PO SCH ×2 (09:11→21:36)
[2016-11-11 09:43] VITALS: BP 116/66
[2016-11-11 12:25] VITALS: BP 138/71
[2016-11-11 16:34] VITALS: BP 149/74
[2016-11-11 19:45] VITALS: BP 127/62
[2016-11-11 23:35] VITALS: BP 122/56
[2016-11-12 04:39] VITALS: BP 115/67
[2016-11-12 07:03] LABS: BASOPHILS % (AUTO) 0.5 % (0.0-2.0); EOSINOPHILS % (AUTO) 5.6 % (1.0-6.0); HEMATOCRIT 33.4 % (41-53); HEMOGLOBIN 10.6 g/dL (13.5-17.5); LYMPHOCYTES # (AUTO) 2.8 K/uL (1.0-4.8); LYMPHOCYTES % (AUTO) 48.4 % (22.0-44.0); MEAN CORPUSCULAR HEMOGLOBIN 28.3 pg (26.0-34.0); MEAN CORPUSCULAR HGB CONC 31.6 G/dL (31.0-37.0); MEAN CORPUSCULAR VOLUME 90 fL (80-100); MONOCYTES # (AUTO) 0.7 K/uL (0.1-1.0); NEUTROPHILS # (AUTO) 1.9 K/uL (1.8-7.7); NEUTROPHILS % (AUTO) 32.5 % (40.0-70.0); PLATELET COUNT (AUTO) 218 K/uL (150-450); RED BLOOD CELL COUNT(AUTO) 3.73 MIL/uL (4.50-5.90); RED CELL DISTRIBUTION WIDTH 17.5 % (11.5-14.5); WHITE BLOOD COUNT (AUTO) 5.7 K/uL (4.5-11.0)
[2016-11-12 07:17] VITALS: BP 120/68
[2016-11-12 07:27] LABS: RBC MORPHOLOGY COMMENT ABNORMAL RBC MORPH
[2016-11-12 07:46] LABS: ANION GAP 7 mmol/L (8-16); CALCIUM, TOTAL 8.5 mg/dL (8.8-10.5); CARBON DIOXIDE 30 mmol/L (22-29); CHLORIDE 100 mmol/L (98-107); CREATININE 0.74 mg/dL (0.60-1.30); GLOMERULAR FILTR. RATE CALC > 60 mL/min (>60); POTASSIUM 4.1 mmol/L (3.5-5.1); SODIUM SERUM 137 mmol/L (136-145); UREA NITROGEN, BLOOD 14 mg/dL (7-18)
[2016-11-12] MEDS: MULTIVITAMINS, THERAPEUTIC TABLET PO SCH (08:44)
[2016-11-12] MEDS: AmLODIPine BESYLATE 5 MG TABLET PO SCH (08:44)
[2016-11-12] MEDS: PANTOPRAZOLE SODIUM 40 MG/VIAL IVP SCH (08:44)
[2016-11-12] MEDS: ASPIRIN 81 MG EC TABLET PO SCH (08:44)
[2016-11-12] MEDS: FUROSEMIDE 20 MG TABLET PO SCH (08:44)
[2016-11-12] MEDS: QUEtiapine FUMARATE 25 MG TABLET PO SCH ×3 (08:45→20:50)
[2016-11-12] MEDS: LACTOBAC ACID/BULG/BIFID/THERM TABLET PO SCH (08:46)
[2016-11-12] MEDS: CAFFEINE 200 MG TABLET PO SCH ×2 (08:46→20:50)
[2016-11-12] MEDS: ASCORBIC ACID 500 MG TABLET PO SCH (08:47)
[2016-11-12 11:30] VITALS: BP 126/58
[2016-11-12 16:08] VITALS: BP 136/67
[2016-11-12 19:55] VITALS: BP 106/55
[2016-11-12 23:51] VITALS: BP 126/51
[2016-11-13 05:04] VITALS: BP 130/69
[2016-11-13 07:28] VITALS: BP 141/71
[2016-11-13 07:38] LABS: BASOPHILS % (AUTO) 0.5 % (0.0-2.0); HEMATOCRIT 36.5 % (41-53); HEMOGLOBIN 11.4 g/dL (13.5-17.5); LYMPHOCYTES # (AUTO) 2.3 K/uL (1.0-4.8); LYMPHOCYTES % (AUTO) 29.9 % (22.0-44.0); MEAN CORPUSCULAR HEMOGLOBIN 28.1 pg (26.0-34.0); MEAN CORPUSCULAR HGB CONC 31.2 G/dL (31.0-37.0); MEAN CORPUSCULAR VOLUME 90 fL (80-100); MONOCYTES # (AUTO) 0.7 K/uL (0.1-1.0); MONOCYTES % (AUTO) 9.3 % (2.0-9.0); NEUTROPHILS # (AUTO) 4.3 K/uL (1.8-7.7); NEUTROPHILS % (AUTO) 56.3 % (40.0-70.0); PLATELET COUNT (AUTO) 233 K/uL (150-450); RED BLOOD CELL COUNT(AUTO) 4.06 MIL/uL (4.50-5.90); RED CELL DISTRIBUTION WIDTH 16.4 % (11.5-14.5); WHITE BLOOD COUNT (AUTO) 7.7 K/uL (4.5-11.0)
[2016-11-13 07:53] LABS: ANION GAP 6 mmol/L (8-16); CALCIUM, TOTAL 8.8 mg/dL (8.8-10.5); CARBON DIOXIDE 30 mmol/L (22-29); CHLORIDE 99 mmol/L (98-107); CREATININE 0.72 mg/dL (0.60-1.30); GLOMERULAR FILTR. RATE CALC > 60 mL/min (>60); POTASSIUM 3.8 mmol/L (3.5-5.1); SODIUM SERUM 135 mmol/L (136-145); UREA NITROGEN, BLOOD 13 mg/dL (7-18)
[2016-11-13] MEDS: QUEtiapine FUMARATE 25 MG TABLET PO SCH ×3 (08:48→21:15)
[2016-11-13] MEDS: ASCORBIC ACID 500 MG TABLET PO SCH (08:49)
[2016-11-13] MEDS: LACTOBAC ACID/BULG/BIFID/THERM TABLET PO SCH (08:49)
[2016-11-13] MEDS: FUROSEMIDE 20 MG TABLET PO SCH (08:49)
[2016-11-13] MEDS: AmLODIPine BESYLATE 5 MG TABLET PO SCH (08:49)
[2016-11-13] MEDS: ASPIRIN 81 MG EC TABLET PO SCH (08:49)
[2016-11-13] MEDS: MULTIVITAMINS, THERAPEUTIC TABLET PO SCH (08:49)
[2016-11-13] MEDS: CAFFEINE 200 MG TABLET PO SCH ×2 (08:49→21:15)
[2016-11-13] MEDS: PANTOPRAZOLE SODIUM 40 MG/VIAL IVP SCH (08:51)
[2016-11-13 10:55] VITALS: BP 116/61
[2016-11-13 15:01] VITALS: BP 145/67
[2016-11-13 20:00] VITALS: BP 121/63
[2016-11-13] MEDS: ZOLPIDEM TARTRATE 5 MG TABLET PO PRN (23:47)
[2016-11-14] VITALS: BP 103/50
[2016-11-14 04:00] VITALS: BP 110/53
[2016-11-14 06:11] LABS: BASOPHILS % (AUTO) 0.6 % (0.0-2.0); EOSINOPHILS % (AUTO) 4.6 % (1.0-6.0); HEMATOCRIT 32.8 % (41-53); HEMOGLOBIN 10.4 g/dL (13.5-17.5); LYMPHOCYTES # (AUTO) 2.2 K/uL (1.0-4.8); LYMPHOCYTES % (AUTO) 35.4 % (22.0-44.0); MEAN CORPUSCULAR HEMOGLOBIN 28.5 pg (26.0-34.0); MEAN CORPUSCULAR HGB CONC 31.6 G/dL (31.0-37.0); MEAN CORPUSCULAR VOLUME 90 fL (80-100); MONOCYTES # (AUTO) 0.9 K/uL (0.1-1.0); MONOCYTES % (AUTO) 14.9 % (2.0-9.0); NEUTROPHILS # (AUTO) 2.8 K/uL (1.8-7.7); NEUTROPHILS % (AUTO) 44.5 % (40.0-70.0); PLATELET COUNT (AUTO) 210 K/uL (150-450); RED BLOOD CELL COUNT(AUTO) 3.64 MIL/uL (4.50-5.90); RED CELL DISTRIBUTION WIDTH 16.7 % (11.5-14.5); WHITE BLOOD COUNT (AUTO) 6.3 K/uL (4.5-11.0)
[2016-11-14 06:24] LABS: ANION GAP 7 mmol/L (8-16); CALCIUM, TOTAL 8.5 mg/dL (8.8-10.5); CARBON DIOXIDE 29 mmol/L (22-29); CHLORIDE 101 mmol/L (98-107); CREATININE 0.73 mg/dL (0.60-1.30); GLOMERULAR FILTR. RATE CALC > 60 mL/min (>60); POTASSIUM 3.7 mmol/L (3.5-5.1); SODIUM SERUM 137 mmol/L (136-145); UREA NITROGEN, BLOOD 11 mg/dL (7-18)
[2016-11-14 07:54] VITALS: BP 106/51
[2016-11-14] MEDS: AmLODIPine BESYLATE 5 MG TABLET PO SCH (09:00)
[2016-11-14] MEDS: FUROSEMIDE 20 MG TABLET PO SCH (09:09)
[2016-11-14] MEDS: LACTOBAC ACID/BULG/BIFID/THERM TABLET PO SCH (09:09)
[2016-11-14] MEDS: PANTOPRAZOLE SODIUM 40 MG DR TABLET PO SCH (09:09)
[2016-11-14] MEDS: ASCORBIC ACID 500 MG TABLET PO SCH (09:09)
[2016-11-14] MEDS: QUEtiapine FUMARATE 25 MG TABLET PO SCH ×3 (09:09→21:07)
[2016-11-14] MEDS: ASPIRIN 81 MG EC TABLET PO SCH (09:09)
[2016-11-14] MEDS: CAFFEINE 200 MG TABLET PO SCH ×2 (09:09→21:07)
[2016-11-14] MEDS: MULTIVITAMINS, THERAPEUTIC TABLET PO SCH (09:12)
[2016-11-14] MEDS: MetroNIDAZOLE 500 MG TABLET PO SCH ×2 (09:14→21:07)
[2016-11-14 11:33] VITALS: BP 114/47
[2016-11-14 15:07] VITALS: BP 107/52
[2016-11-14 20:27] VITALS: BP 129/71
[2016-11-15 00:01] VITALS: BP 106/50
[2016-11-15 04:57] VITALS: BP 127/66
[2016-11-15 07:40] VITALS: BP 125/64
[2016-11-15] MEDS: ASPIRIN 81 MG EC TABLET PO SCH (08:52)
[2016-11-15] MEDS: MULTIVITAMINS, THERAPEUTIC TABLET PO SCH (08:53)
[2016-11-15] MEDS: PANTOPRAZOLE SODIUM 40 MG DR TABLET PO SCH (08:53)
[2016-11-15] MEDS: MetroNIDAZOLE 500 MG TABLET PO SCH ×2 (08:53→20:28)
[2016-11-15] MEDS: AmLODIPine BESYLATE 5 MG TABLET PO SCH (08:53)
[2016-11-15] MEDS: LACTOBAC ACID/BULG/BIFID/THERM TABLET PO SCH (08:54)
[2016-11-15] MEDS: CAFFEINE 200 MG TABLET PO SCH ×2 (08:54→20:28)
[2016-11-15] MEDS: QUEtiapine FUMARATE 25 MG TABLET PO SCH ×3 (08:55→20:28)
[2016-11-15] MEDS: ASCORBIC ACID 500 MG TABLET PO SCH (08:55)
[2016-11-15] MEDS: FUROSEMIDE 20 MG TABLET PO SCH (09:00)
[2016-11-15 11:04] VITALS: BP 131/69
[2016-11-15 15:20] VITALS: BP 123/62
[2016-11-15 19:26] VITALS: BP 112/62
[2016-11-16] VITALS (7 sets, daily range): BP systolic 101–143; BP diastolic 54–89
[2016-11-16] MEDS: LORazepam 2 MG/ML VIAL IVP PRN (04:54)
[2016-11-16 07:59] LABS: BASOPHILS # (AUTO) 0.02 K/uL (0.00-0.20); BASOPHILS % (AUTO) 0.3 % (0.0-2.0); EOSINOPHILS # (AUTO) 0.22 K/uL (0.00-0.70); EOSINOPHILS % (AUTO) 3.15 % (1.0-6.0); HEMATOCRIT 35.3 % (41-53); HEMOGLOBIN 11.4 g/dL (13.5-17.5); LYMPHOCYTES # (AUTO) 2.3 K/uL (1.0-4.8); LYMPHOCYTES % (AUTO) 33.3 % (22.0-44.0); MEAN CORPUSCULAR HEMOGLOBIN 28.8 pg (26.0-34.0); MEAN CORPUSCULAR HGB CONC 32.3 G/dL (31.0-37.0); MEAN CORPUSCULAR VOLUME 89 fL (80-100); MONOCYTES # (AUTO) 0.8 K/uL (0.1-1.0); MONOCYTES % (AUTO) 11.9 % (2.0-9.0); NEUTROPHILS # (AUTO) 3.6 K/uL (1.8-7.7); NEUTROPHILS % (AUTO) 51.4 % (40.0-70.0); PLATELET COUNT (AUTO) 224 K/uL (150-450); RED BLOOD CELL COUNT(AUTO) 3.96 MIL/uL (4.50-5.90); RED CELL DISTRIBUTION WIDTH 16.8 % (11.5-14.5)
[2016-11-16 08:19] LABS: ALANINE AMINOTRANSFERASE 14 U/L (12-78); ALBUMIN 2.8 g/dL (3.4-5.0); ANION GAP 8 mmol/L (8-16); ASPARTATE AMINOTRANSFERASE 20 U/L (15-37); BILIRUBIN,TOTAL 0.3 mg/dL (0.1-1.0); CALCIUM, TOTAL 8.5 mg/dL (8.8-10.5); CARBON DIOXIDE 29 mmol/L (22-29); CHLORIDE 101 mmol/L (98-107); CREATININE 0.86 mg/dL (0.60-1.30); GLOMERULAR FILTR. RATE CALC > 60 mL/min (>60); POTASSIUM 3.9 mmol/L (3.5-5.1); SODIUM SERUM 138 mmol/L (136-145); TOTAL PROTEIN, SERUM 7.5 g/dL (6.4-8.2); UREA NITROGEN, BLOOD 18 mg/dL (7-18)
[2016-11-16] MEDS: CAFFEINE 200 MG TABLET PO SCH ×2 (08:21→20:26)
[2016-11-16] MEDS: MetroNIDAZOLE 500 MG TABLET PO SCH ×2 (08:21→20:27)
[2016-11-16] MEDS: LACTOBAC ACID/BULG/BIFID/THERM TABLET PO SCH (08:21)
[2016-11-16] MEDS: ASPIRIN 81 MG EC TABLET PO SCH (08:21)
[2016-11-16] MEDS: FUROSEMIDE 20 MG TABLET PO SCH (08:21)
[2016-11-16] MEDS: MULTIVITAMINS, THERAPEUTIC TABLET PO SCH (08:22)
[2016-11-16] MEDS: ASCORBIC ACID 500 MG TABLET PO SCH (08:22)
[2016-11-16] MEDS: AmLODIPine BESYLATE 5 MG TABLET PO SCH (08:22)
[2016-11-16] MEDS: PANTOPRAZOLE SODIUM 40 MG DR TABLET PO SCH (08:22)
[2016-11-16] MEDS: QUEtiapine FUMARATE 25 MG TABLET PO SCH ×3 (08:22→20:26)
[2016-11-17 04:30] VITALS: BP 128/67
[2016-11-17 07:03] LABS: BASOPHILS % (AUTO) 0.5 % (0.0-2.0); EOSINOPHILS % (AUTO) 3.1 % (1.0-6.0); HEMOGLOBIN 11.8 g/dL (13.5-17.5); LYMPHOCYTES # (AUTO) 2.9 K/uL (1.0-4.8); MEAN CORPUSCULAR HEMOGLOBIN 28.1 pg (26.0-34.0); MEAN CORPUSCULAR HGB CONC 31.2 G/dL (31.0-37.0); MEAN CORPUSCULAR VOLUME 90 fL (80-100); MONOCYTES # (AUTO) 0.8 K/uL (0.1-1.0); MONOCYTES % (AUTO) 13.7 % (2.0-9.0); NEUTROPHILS % (AUTO) 33.7 % (40.0-70.0); PLATELET COUNT (AUTO) 225 K/uL (150-450); RED BLOOD CELL COUNT(AUTO) 4.21 MIL/uL (4.50-5.90); RED CELL DISTRIBUTION WIDTH 16.8 % (11.5-14.5); WHITE BLOOD COUNT (AUTO) 5.9 K/uL (4.5-11.0)
[2016-11-17 07:12] LABS: ALANINE AMINOTRANSFERASE 13 U/L (12-78); ALBUMIN 2.9 g/dL (3.4-5.0); ANION GAP 7 mmol/L (8-16); ASPARTATE AMINOTRANSFERASE 16 U/L (15-37); BILIRUBIN,TOTAL 0.3 mg/dL (0.1-1.0); CALCIUM, TOTAL 8.5 mg/dL (8.8-10.5); CARBON DIOXIDE 29 mmol/L (22-29); CHLORIDE 103 mmol/L (98-107); CREATININE 0.99 mg/dL (0.60-1.30); GLOMERULAR FILTR. RATE CALC > 60 mL/min (>60); POTASSIUM 3.5 mmol/L (3.5-5.1); SODIUM SERUM 139 mmol/L (136-145); TOTAL PROTEIN, SERUM 7.7 g/dL (6.4-8.2); UREA NITROGEN, BLOOD 19 mg/dL (7-18)
[2016-11-17 07:59] VITALS: BP 124/62
[2016-11-17] MEDS: FUROSEMIDE 20 MG TABLET PO SCH (08:59)
[2016-11-17] MEDS: MetroNIDAZOLE 500 MG TABLET PO SCH ×2 (08:59→20:26)
[2016-11-17] MEDS: PANTOPRAZOLE SODIUM 40 MG DR TABLET PO SCH (08:59)
[2016-11-17] MEDS: MULTIVITAMINS, THERAPEUTIC TABLET PO SCH (08:59)
[2016-11-17] MEDS: AmLODIPine BESYLATE 5 MG TABLET PO SCH (08:59)
[2016-11-17] MEDS: ASPIRIN 81 MG EC TABLET PO SCH (09:00)
[2016-11-17] MEDS: CAFFEINE 200 MG TABLET PO SCH ×2 (09:00→20:26)
[2016-11-17] MEDS: ASCORBIC ACID 500 MG TABLET PO SCH (09:00)
[2016-11-17] MEDS: QUEtiapine FUMARATE 25 MG TABLET PO SCH ×3 (09:01→20:26)
[2016-11-17] MEDS: LACTOBAC ACID/BULG/BIFID/THERM TABLET PO SCH (09:01)
[2016-11-17 11:30] VITALS: BP 134/75
[2016-11-17] MEDS: ACETAMINOPHEN 325 MG TABLET PO PRN (17:18)
[2016-11-17 19:39] VITALS: BP 115/56
[2016-11-18] VITALS: BP 119/62
[2016-11-18 04:00] VITALS: BP 129/69
[2016-11-18 07:26] VITALS: BP 129/61
[2016-11-18] MEDS: ASPIRIN 81 MG EC TABLET PO SCH (08:10)
[2016-11-18] MEDS: PANTOPRAZOLE SODIUM 40 MG DR TABLET PO SCH (08:10)
[2016-11-18] MEDS: FUROSEMIDE 20 MG TABLET PO SCH (08:10)
[2016-11-18] MEDS: ASCORBIC ACID 500 MG TABLET PO SCH (08:10)
[2016-11-18] MEDS: MULTIVITAMINS, THERAPEUTIC TABLET PO SCH (08:10)
[2016-11-18] MEDS: AmLODIPine BESYLATE 5 MG TABLET PO SCH (08:10)
[2016-11-18] MEDS: MetroNIDAZOLE 500 MG TABLET PO SCH ×2 (08:11→20:37)
[2016-11-18] MEDS: LACTOBAC ACID/BULG/BIFID/THERM TABLET PO SCH (08:11)
[2016-11-18] MEDS: QUEtiapine FUMARATE 25 MG TABLET PO SCH ×3 (08:11→20:37)
[2016-11-18] MEDS: CAFFEINE 200 MG TABLET PO SCH ×2 (08:12→20:38)
[2016-11-18 11:59] VITALS: BP 105/56
[2016-11-18 15:59] VITALS: BP 105/54
[2016-11-18 21:31] VITALS: BP 105/64
[2016-11-19] VITALS: BP 126/68
[2016-11-19 03:57] VITALS: BP 149/77
[2016-11-19 07:32] VITALS: BP 126/62
[2016-11-19] MEDS: LORazepam 2 MG/ML VIAL IVP PRN (08:42)
[2016-11-19] MEDS: MULTIVITAMINS, THERAPEUTIC TABLET PO SCH (09:01)
[2016-11-19] MEDS: CAFFEINE 200 MG TABLET PO SCH ×2 (09:02→20:50)
[2016-11-19] MEDS: QUEtiapine FUMARATE 25 MG TABLET PO SCH ×3 (09:03→20:49)
[2016-11-19] MEDS: ASPIRIN 81 MG EC TABLET PO SCH (09:03)
[2016-11-19] MEDS: LACTOBAC ACID/BULG/BIFID/THERM TABLET PO SCH (09:03)
[2016-11-19] MEDS: PANTOPRAZOLE SODIUM 40 MG DR TABLET PO SCH (09:03)
[2016-11-19] MEDS: ASCORBIC ACID 500 MG TABLET PO SCH (09:04)
[2016-11-19] MEDS: AmLODIPine BESYLATE 5 MG TABLET PO SCH (09:04)
[2016-11-19] MEDS: MetroNIDAZOLE 500 MG TABLET PO SCH ×2 (09:04→20:49)
[2016-11-19] MEDS: FUROSEMIDE 20 MG TABLET PO SCH (09:04)
[2016-11-19 11:31] VITALS: BP 112/52
[2016-11-19 15:50] VITALS: BP 110/55
[2016-11-19 20:36] VITALS: BP 163/86
[2016-11-20] VITALS (7 sets, daily range): BP systolic 102–122; BP diastolic 52–68
[2016-11-20] MEDS: VANCOMYCIN HCL 125 MG/2.5 ML SOLUTION ORAL.SYG PO SCH ×4 (00:21→17:13)
[2016-11-20 06:58] LABS: BASOPHILS % (AUTO) 0.7 % (0.0-2.0); EOSINOPHILS % (AUTO) 3.8 % (1.0-6.0); HEMATOCRIT 34.1 % (41-53); HEMOGLOBIN 10.8 g/dL (13.5-17.5); LYMPHOCYTES # (AUTO) 2.6 K/uL (1.0-4.8); LYMPHOCYTES % (AUTO) 38.2 % (22.0-44.0); MEAN CORPUSCULAR HEMOGLOBIN 28.3 pg (26.0-34.0); MEAN CORPUSCULAR HGB CONC 31.6 G/dL (31.0-37.0); MEAN CORPUSCULAR VOLUME 90 fL (80-100); MONOCYTES # (AUTO) 0.7 K/uL (0.1-1.0); MONOCYTES % (AUTO) 11.2 % (2.0-9.0); NEUTROPHILS # (AUTO) 3.1 K/uL (1.8-7.7); NEUTROPHILS % (AUTO) 46.1 % (40.0-70.0); PLATELET COUNT (AUTO) 220 K/uL (150-450); RED CELL DISTRIBUTION WIDTH 16.4 % (11.5-14.5); WHITE BLOOD COUNT (AUTO) 6.7 K/uL (4.5-11.0)
[2016-11-20 07:04] LABS: ALANINE AMINOTRANSFERASE 15 U/L (12-78); ALBUMIN 2.5 g/dL (3.4-5.0); ANION GAP 5 mmol/L (8-16); ASPARTATE AMINOTRANSFERASE 15 U/L (15-37); BILIRUBIN,TOTAL 0.2 mg/dL (0.1-1.0); CALCIUM, TOTAL 8.3 mg/dL (8.8-10.5); CARBON DIOXIDE 30 mmol/L (22-29); CHLORIDE 103 mmol/L (98-107); CREATININE 0.94 mg/dL (0.60-1.30); GLOMERULAR FILTR. RATE CALC > 60 mL/min (>60); POTASSIUM 3.6 mmol/L (3.5-5.1); SODIUM SERUM 138 mmol/L (136-145); TOTAL PROTEIN, SERUM 6.9 g/dL (6.4-8.2); UREA NITROGEN, BLOOD 17 mg/dL (7-18)
[2016-11-20] MEDS: QUEtiapine FUMARATE 25 MG TABLET PO SCH ×3 (09:46→21:49)
[2016-11-20] MEDS: CAFFEINE 200 MG TABLET PO SCH ×2 (09:46→21:49)
[2016-11-20] MEDS: AmLODIPine BESYLATE 5 MG TABLET PO SCH (09:46)
[2016-11-20] MEDS: FUROSEMIDE 20 MG TABLET PO SCH (09:46)
[2016-11-20] MEDS: LACTOBAC ACID/BULG/BIFID/THERM TABLET PO SCH (09:46)
[2016-11-20] MEDS: MULTIVITAMINS, THERAPEUTIC TABLET PO SCH (09:46)
[2016-11-20] MEDS: ASCORBIC ACID 500 MG TABLET PO SCH (09:46)
[2016-11-20] MEDS: PANTOPRAZOLE SODIUM 40 MG DR TABLET PO SCH (09:46)
[2016-11-20] MEDS: ASPIRIN 81 MG EC TABLET PO SCH (09:46)
[2016-11-20] MEDS: MAGNESIUM OXIDE 400 MG TABLET PO PRN (13:44)
[2016-11-20] MEDS: MAGNESIUM OXIDE 400 MG TABLET PO SCH (21:48)
[2016-11-20] MEDS: ACETAMINOPHEN 325 MG TABLET PO PRN (21:52)
[2016-11-21] MEDS: VANCOMYCIN HCL 125 MG/2.5 ML SOLUTION ORAL.SYG PO SCH ×4 (00:40→18:00)
[2016-11-21 04:00] VITALS: BP 122/68
[2016-11-21] MEDS: MAGNESIUM OXIDE 400 MG TABLET PO PRN (04:41)
[2016-11-21 07:14] VITALS: BP 135/69
[2016-11-21] MEDS: PANTOPRAZOLE SODIUM 40 MG DR TABLET PO SCH (08:37)
[2016-11-21] MEDS: LACTOBAC ACID/BULG/BIFID/THERM TABLET PO SCH (08:37)
[2016-11-21] MEDS: QUEtiapine FUMARATE 25 MG TABLET PO SCH ×3 (08:37→21:26)
[2016-11-21] MEDS: FUROSEMIDE 20 MG TABLET PO SCH (08:37)
[2016-11-21] MEDS: MULTIVITAMINS, THERAPEUTIC TABLET PO SCH (08:37)
[2016-11-21] MEDS: MAGNESIUM OXIDE 400 MG TABLET PO SCH ×2 (08:38→21:26)
[2016-11-21] MEDS: AmLODIPine BESYLATE 5 MG TABLET PO SCH (08:38)
[2016-11-21] MEDS: ASCORBIC ACID 500 MG TABLET PO SCH (08:38)
[2016-11-21] MEDS: CAFFEINE 200 MG TABLET PO SCH ×2 (08:41→21:28)
[2016-11-21] MEDS: ASPIRIN 81 MG EC TABLET PO SCH (08:41)
[2016-11-21 11:01] VITALS: BP 136/71
[2016-11-21 15:31] VITALS: BP 117/59
[2016-11-21] MEDS: LORazepam 2 MG/ML VIAL IVP PRN (16:14)
[2016-11-21 20:05] VITALS: BP 138/55
[2016-11-22] VITALS (7 sets, daily range): BP systolic 102–154; BP diastolic 51–75
[2016-11-22] MEDS: VANCOMYCIN HCL 125 MG/2.5 ML SOLUTION ORAL.SYG PO SCH ×5 (00:04→22:47)
[2016-11-22] MEDS: PANTOPRAZOLE SODIUM 40 MG DR TABLET PO SCH (08:00)
[2016-11-22] MEDS: LACTOBAC ACID/BULG/BIFID/THERM TABLET PO SCH (08:00)
[2016-11-22] MEDS: ASPIRIN 81 MG EC TABLET PO SCH (08:01)
[2016-11-22] MEDS: MAGNESIUM OXIDE 400 MG TABLET PO SCH ×2 (08:01→19:50)
[2016-11-22] MEDS: AmLODIPine BESYLATE 5 MG TABLET PO SCH (08:01)
[2016-11-22] MEDS: QUEtiapine FUMARATE 25 MG TABLET PO SCH ×3 (08:01→19:55)
[2016-11-22] MEDS: CAFFEINE 200 MG TABLET PO SCH ×2 (08:01→22:47)
[2016-11-22] MEDS: ASCORBIC ACID 500 MG TABLET PO SCH (08:01)
[2016-11-22] MEDS: FUROSEMIDE 20 MG TABLET PO SCH (08:01)
[2016-11-22] MEDS: MULTIVITAMINS, THERAPEUTIC TABLET PO SCH (08:06)
[2016-11-23] MEDS: LORazepam 2 MG/ML VIAL IVP PRN (02:10)
[2016-11-23 05:18] VITALS: BP 114/57
[2016-11-23] MEDS: VANCOMYCIN HCL 125 MG/2.5 ML SOLUTION ORAL.SYG PO SCH ×3 (06:42→17:35)
[2016-11-23 08:04] VITALS: BP 124/69
[2016-11-23] MEDS: LACTOBAC ACID/BULG/BIFID/THERM TABLET PO SCH (08:31)
[2016-11-23] MEDS: QUEtiapine FUMARATE 25 MG TABLET PO SCH ×2 (08:31→15:42)
[2016-11-23] MEDS: FUROSEMIDE 20 MG TABLET PO SCH (08:32)
[2016-11-23] MEDS: ASCORBIC ACID 500 MG TABLET PO SCH (08:32)
[2016-11-23] MEDS: AmLODIPine BESYLATE 5 MG TABLET PO SCH (08:32)
[2016-11-23] MEDS: MAGNESIUM OXIDE 400 MG TABLET PO SCH (08:32)
[2016-11-23] MEDS: PANTOPRAZOLE SODIUM 40 MG DR TABLET PO SCH (08:32)
[2016-11-23] MEDS: CAFFEINE 200 MG TABLET PO SCH (08:32)
[2016-11-23] MEDS: ASPIRIN 81 MG EC TABLET PO SCH (08:32)
[2016-11-23] MEDS: MULTIVITAMINS, THERAPEUTIC TABLET PO SCH (08:32)
[2016-11-23 11:32] VITALS: BP 126/68
[2016-11-23 15:32] VITALS: BP 106/54
[2016-11-23] MEDS ORDERED: AMLO-511 PO (16:26)
[2016-11-23] MEDS ORDERED: CAFF200T65 PO (16:28)
[2016-11-23] MEDS ORDERED: MAGOX PO (16:29)
[2016-11-23] MEDS ORDERED: VANCOPO PO (16:31)
[2016-11-23] MEDS ORDERED: ENAL5 PO (16:32)
[2016-11-23] MEDS ORDERED: SIME80 PO (16:33)
== END 2016-11-23 19:00 | disposition hospice, home (50) | DRG 871 ==
LOC: EMS 17:27 → 5N 19:30 → 5S 23:15 → 6N 11-16 18:50
PROVIDERS: ADMIT Internal Medicine Geriatric Medicine; ATTEND Internal Medicine Geriatric Medicine
PROC: 0DJD8ZZ Inspection of Lower Intestinal Tract, Via Natural or Artificial Opening Endoscopic (ICD-10-PCS; 2016-10-30)
PROC: 0DJ08ZZ Inspection of Upper Intestinal Tract, Via Natural or Artificial Opening Endoscopic (ICD-10-PCS; principal; 2016-10-30 15:00)
DX: A41.9 Sepsis, unspecified organism (principal); L89.154 Pressure ulcer of sacral region, stage 4; E43 Unspecified severe protein-calorie malnutrition; K92.2 Gastrointestinal hemorrhage, unspecified; N39.0 Urinary tract infection, site not specified; A04.7 Enterocolitis due to Clostridium difficile; F03.90 Unspecified dementia, unspecified severity, without behavioral disturbance, psychotic disturbance, mood disturbance, and anxiety; E87.6 Hypokalemia; D64.9 Anemia, unspecified; B96.89 Other specified bacterial agents as the cause of diseases classified elsewhere; E78.5 Hyperlipidemia, unspecified; I95.9 Hypotension, unspecified; I11.9 Hypertensive heart disease without heart failure; I50.9 Heart failure, unspecified; I25.9 Chronic ischemic heart disease, unspecified; R26.9 Unspecified abnormalities of gait and mobility; E66.9 Obesity, unspecified; N40.0 Benign prostatic hyperplasia without lower urinary tract symptoms; K21.9 Gastro-esophageal reflux disease without esophagitis; I25.10 Atherosclerotic heart disease of native coronary artery without angina pectoris; R00.1 Bradycardia, unspecified; I44.1 Atrioventricular block, second degree; N31.9 Neuromuscular dysfunction of bladder, unspecified; Z79.82 Long term (current) use of aspirin; Z79.899 Other long term (current) drug therapy; Z22.322 Carrier or suspected carrier of Methicillin resistant Staphylococcus aureus; Z68.27 Body mass index [BMI] 27.0-27.9, adult; Z90.79 Acquired absence of other genital organ(s); Z74.01 Bed confinement status
CPT/HCPCS: 82306; 82607; 82746; 83036; 83735; 84436; 84439; 84443; 86850; 86900; 86901; 87081; 87086; 87324; 87449; 92610; 93005; 93306; 96374; 99285; C9113; J0696; J2060; J2704; J7030; J7040; J7050